=== PATIENT | male | born 1995 | race Caucasian/White ===

== ENCOUNTER 2023-11-25 21:30 | Emergency (ER) | payer MEDICAID ==
[~2023-11-25] VITALS: Ht 172.7 cm; Wt 113.4 kg
[2023-11-25 21:30] VITALS: BP 156/98; PULSE 140; RESP 19; TEMP 98.1; O2SAT 98
[2023-11-26] MEDS: HYDROcodone/APAP 5/325 MG 1 TAB TAB PO ONE (00:29)
[2023-11-26] MEDS: BACITRACIN OINT 500 UNITS/GM PKT TP ONE (00:31)
[2023-11-26] MEDS ORDERED: ACET-5636 PO (01:43)
[2023-11-26] MEDS ORDERED: AMOX1TAB8 PO (01:43)
[2023-11-26 01:55] VITALS: BP 138/86; PULSE 106; RESP 19; TEMP 98.1; O2SAT 98
== END 2023-11-26 01:52 | disposition home or self-care (01) ==
LOC: MED 21:30
DX: S61.217A Laceration without foreign body of left little finger without damage to nail, initial encounter (principal); Y04.1XXA Assault by human bite, initial encounter; Y93.89 Activity, other specified; Y92.89 Other specified places as the place of occurrence of the external cause; Y99.8 Other external cause status
CPT/HCPCS: 12001; 73140; 90471; 90715; 99283

== ENCOUNTER 2023-11-28 10:49 | Emergency (ER) | payer MEDICAID ==
[~2023-11-28] VITALS: Ht 170.2 cm; Wt 113.4 kg
[~2023-11-28 10:49] MED LIST: ACET-5636 PO; AMOX1TAB8 PO
[2023-11-28 11:09] VITALS: BP 115/81; PULSE 89; RESP 18; TEMP 97.1; O2SAT 99
== END 2023-11-28 12:22 | disposition left against medical advice (07) ==
LOC: MED 10:49
DX: Z00.8 Encounter for other general examination (principal); Z48.00 Encounter for change or removal of nonsurgical wound dressing; Z53.21 Procedure and treatment not carried out due to patient leaving prior to being seen by health care provider
CPT/HCPCS: 99281